=== PATIENT | female | born 1980 | race Native Hawaiian/Other Pacific Islander ===

== ENCOUNTER 2018-06-06 14:37 | Inpatient (IN) | payer BC, OTHER ==
--- NOTE | 2018-06-06 14:54 | ED PDOC ---
HPI: General Adult Time Seen by Provider: 06/06/18 14:46 Chief Complaint (Nursing): Abnormal Skin Integrity Chief Complaint (Provider): breast pain History Per: Patient History/Exam Limitations: no limitations Onset/Duration Of Symptoms: Gradual Have you had recent travel within the past 21 days to any of the following countries: [place], [place], [place] or [place]?: No Current Symptoms Are (Timing): Still Present Severity: Severe Additional Complaint(s): 38yo female c/o breast pain and swelling becoming progressively more severe over last several days. Symptoms associated with fever and weakness. Past Medical History Reviewed: Historical Data, Nursing Documentation, Vital Signs Vital Signs: Last Vital Signs Temp 97.7 F 06/06/18 16:10 Pulse 70 06/06/18 16:10 Resp 18 06/06/18 16:10 BP 141/75 06/06/18 16:10 Pulse Ox 99 06/06/18 15:06 - Medical History PMH: No Chronic Diseases, Kidney Stones Other PMH: ? allergy to unknown local anesthetic - Surgical History Surgical History: No Surg Hx - Family History Family History: States: Unknown Family Hx - Social History Current smoker - smoking cessation education provided: No - Home Medications Home Medications: Ambulatory Orders Medication Instructions Recorded Mv-Min/Iron/Folic/Calcium/Vitk 1 tab PO DAILY 06/06/18 [Women's Multivitamin Tablet] - Allergies Allergies/Adverse Reactions: Allergies Allergy/AdvReac Type Severity Reaction Status Date / Time benzyl alcohol Allergy SWELLING Verified 06/06/18 14:40 [From Oragesic] peanut Allergy RASH Verified 06/06/18 14:40 sodium chloride irrigating Allergy SWELLING Verified 06/06/18 14:40 solution [From Oragesic] yerba baljit [From Oragesic] Allergy SWELLING Verified 06/06/18 14:40 Review of Systems Constitutional: Positive for: Fever ENT: Negative for: Throat Pain Cardiovascular: Positive for: Chest Pain Respiratory: Positive for: Shortness of Breath Gastrointestinal: Negative for: Abdominal Pain Genitourinary Female: Negative for: Dysuria Musculoskeletal: Positive for: Back Pain. Negative for: Neck Pain Skin: Negative for: Rash, Lesions Neurological: Negative for: Weakness, Numbness, Headache Psych: Negative for: Psychosis, Suicidal ideation Physical Exam - Reviewed Nursing Documentation Reviewed: Yes Vital Signs Reviewed: Yes - Physical Exam Appears: Positive for: Well, Non-toxic Head Exam: Positive for: ATRAUMATIC Skin: Positive for: Normal Color, Warm Neck: Positive for: Painless ROM Cardiovascular/Chest: Positive for: Other (breast edema/ tender mass bilaterally ?nipple discharge). Negative for: Irregularly Irregular Respiratory: Negative for: Decreased Breath Sounds Extremity: Positive for: Normal ROM. Negative for: Swelling Neurologic/Psych: Positive for: Alert, manager cath lab II-XII, Oriented. Negative for: Motor/Sensory Deficits Front/Back of Body: 1 - breast edema, mass and tenderness - Laboratory Results Result Diagrams: 06/06/18 15:03 06/06/18 15:03 - ECG O2 Sat by Pulse Oximetry: 99 Pulse Ox Interpretation: Normal Medical Decision Making Medical Decision Making: to obtain surgical eval contact center analyst Dr Ferguson Check labs, EKG, CXR labs unremarkable CXR negative surgical team in ED recommends admission Admit contact center analyst surgery Dr Ferguson Disposition - Clinical Impression Clinical Impression: Breast mass - Patient ED Disposition Is Patient to be Admitted: Yes Counseled Patient/Family Regarding: Studies Performed, Diagnosis, Need For Followup - Disposition Disposition Time: 15:01 Condition: STABLE - Pt Status Changed To: Hospital Disposition Of: Inpatient - Admit Certification Admit to Inpatient:: After my assessment, the patient will require hospitalization for at least two midnights. This is because of the severity of symptoms shown, intensity of services needed, and/or the medical risk in this patient being treated as an outpatient. - POA Present On Arrival: None
[2018-06-06 15:06] LABS: BASO # 0.1 K/uL (0.0-0.2); BASO % 0.9 % (0.0-2.0); EOS % 0.7 % (0.0-4.0); HEMOGLOBIN 12.6 g/dL (12.0-16.0); LYMPH % 28.5 % (20.0-40.0); MEAN CELL VOLUME 91.2 fl (81.0-99.0); MEAN CORPUSCULAR HEMOGLOBIN 30.2 pg (27.0-31.0); MEAN CORPUSCULAR HGB CONC 33.1 g/dL (33.0-37.0); MEAN PLATELET VOLUME 9.9 fl (7.2-11.7); MONO # 0.6 K/uL (0.0-0.8); MONO % 8.9 % (0.0-10.0); NEUT # 4.2 K/uL (1.8-7.0); NRBC % 0.1 % (0.0-0.0); RBC 4.19 Mil/uL (3.80-5.20); RED CELL DISTRIBUTION WIDTH 14.8 % (11.5-14.5); WHITE BLOOD COUNT 6.9 K/uL (4.8-10.8)
[2018-06-06 15:18] LABS: ALB/GLOB RATIO 1.2 (1.0-2.1); ALBUMIN 4.5 g/dL (3.5-5.0); ALT/SGPT 29 U/L (9-52); AST/SGOT 23 U/L (14-36); BLOOD UREA NITROGEN 20 mg/dl (7-17); CALCIUM 9.5 mg/dL (8.4-10.2); GFR NON-AFRICAN AMERICAN > 60
[2018-06-06 15:25] LABS: PROTHROMBIN TIME 11.3 Seconds (9.8-13.1)
[2018-06-06 15:27] LABS: PARTIAL THROMBOPLASTIN TIME 28.7 Seconds (25.6-37.1)
--- NOTE | 2018-06-06 15:36 | CP.PCM.HP ---
History of Present Illness - History of Present Illness History of Present Illness: General Surgery H & P for Dr. Michaels-Licha Morales, PGY-2 Pt S & E at bedside at 1515 38F w/PMH sig for nephrolithasis admitted for bilateral breast pain/mass. Pt reports that >15 yrs prior she was in [place] and had some sort of unknown procedure on her breasts. Recently, she noted increasing pain, lumps in her breasts, and enlargement of her breasts of undetermined duration. Admits to associated back and neck pain, SOB, dyspnea on exertion, chest pain, dizziness and fatigue. Denies nipple discharge, skin changes, unintentional weight loss, headache, changes in urinary or bowel habits, changes in eating habits, other complaints. PMH: Nephrolithiasis PSH: Denies All: Peanuts, NaCl irrigation solution, yerba baljit, benzyl ETOH SH: Denies ETOH, tobacco or illicit drug use FH: denies hx of breast CA or other CA in 1st degree relatives PMD: Dr. Bee Present on Admission - Present on Admission Any Indicators Present on Admission: No History of DVT/PE: No History of Uncontrolled Diabetes: No Urinary Catheter: No Decubitus Ulcer Present: No Review of Systems - Review of Systems All systems: reviewed and no additional remarkable complaints except - Constitutional Constitutional: absent: Chills, Fever, Headache, Increased Appetite, Weight Loss - EENT Eyes: absent: Change in Vision Ears: Dizziness Nose/Mouth/Throat: absent: Sore Throat - Cardiovascular Cardiovascular: Chest Pain, Dyspnea on Exertion - Gastrointestinal Gastrointestinal: absent: Abdominal Pain, Change in Bowel Habits, Constipation, Diarrhea, Hematemesis, Hematochezia, Nausea, Vomiting - Genitourinary Genitourinary: absent: Difficulty Urinating, Dysuria, Flank Pain, Hematuria, Pyuria - Musculoskeletal Musculoskeletal: Back Pain, Neck Pain. absent: Numbness, Tingling - Integumentary Integumentary: absent: New Lesions, Rash - Neurological Neurological: Weakness - Psychiatric Psychiatric: absent: Change in Appetite Past Patient History - Past Social History Smoking Status: Never Smoked - RENAL Hx Kidney Stones: Yes - PSYCHIATRIC Hx Substance Use: No Meds Allergies/Adverse Reactions: Allergies Allergy/AdvReac Type Severity Reaction Status Date / Time benzyl alcohol Allergy SWELLING Verified 06/06/18 14:40 [From Oragesic] peanut Allergy RASH Verified 06/06/18 14:40 sodium chloride irrigating Allergy SWELLING Verified 06/06/18 14:40 solution [From Oragesic] yerba baljit [From Oragesic] Allergy SWELLING Verified 06/06/18 14:40 Physical Exam - Constitutional Appears: Non-toxic, No Acute Distress - Head Exam Head Exam: ATRAUMATIC, NORMAL INSPECTION, NORMOCEPHALIC - Eye Exam Eye Exam: EOMI, Normal appearance - ENT Exam ENT Exam: Mucous Membranes Moist, Normal Exam - Neck Exam Neck exam: Positive for: Full Rom, Normal Inspection - Respiratory Exam Respiratory Exam: Chest Wall Tenderness (over breast tissue), Clear to Auscultation Bilateral, NORMAL BREATHING PATTERN. absent: Rales, Rhonchi, Wheezes, Respiratory Distress Additional comments: Breasts bilaterally grossly engorged, tender to palpation, palpable mass in lateral aspect of left breast, approximately 4 o'clock position; unable to appreciate lump in right breast. No skin changes, no nipple discharge; questionable nodules/granulomas b/l breasts - Cardiovascular Exam Cardiovascular Exam: REGULAR RHYTHM, +S1, +S2 - GI/Abdominal Exam GI & Abdominal Exam: Normal Bowel Sounds, Soft. absent: Distended, Firm, Guarding, Tenderness - Extremities Exam Extremities exam: Positive for: normal inspection. Negative for: pedal edema - Back Exam Back exam: NORMAL INSPECTION - Neurological Exam Neurological exam: Alert, CN II-XII Intact, Oriented x3 - Psychiatric Exam Psychiatric exam: Normal Affect, Normal Mood - Skin Skin Exam: Dry, Intact, Normal Color, Warm Results - Vital Signs Recent Vital Signs: Last Vital Signs Temp 97.7 F 06/06/18 14:39 Pulse 70 06/06/18 14:39 Resp 18 06/06/18 14:39 BP 141/75 06/06/18 14:39 Pulse Ox 99 06/06/18 15:06 - Labs Result Diagrams: 06/06/18 15:03 06/06/18 15:03 Labs: Laboratory Results - last 24 hr 06/06/18 06/06/18 06/06/18 15:03 15:03 15:03 WBC 6.9 RBC 4.19 Hgb 12.6 Hct 38.2 MCV 91.2 MCH 30.2 MCHC 33.1 RDW 14.8 H Plt Count 240 MPV 9.9 Neut % (Auto) 61.0 Lymph % (Auto) 28.5 [place] % (Auto) 8.9 Eos % (Auto) 0.7 Baso % (Auto) 0.9 Neut # (Auto) 4.2 Lymph # (Auto) 2.0 [place] # (Auto) 0.6 Eos # (Auto) 0.0 Baso # (Auto) 0.1 PT 11.3 INR 1.0 APTT 28.7 Sodium 137 Potassium 4.1 Chloride 104 Carbon Dioxide 25 Anion Gap 12 BUN 20 H Creatinine 0.6 L Est GFR ( Amer) > 60 Est GFR (Non-Af Amer) > 60 Random Glucose 90 Calcium 9.5 Total Bilirubin 0.7 AST 23 ALT 29 Alkaline Phosphatase 80 Total Protein 8.2 Albumin 4.5 Globulin 3.7 Albumin/Globulin Ratio 1.2 Assessment & Plan - Assessment and Plan (Free Text) Assessment: 38M w/bilateral breast pain and masses Plan: Admit to Med-surg VS Q8H Activity as tolerated Pain control PRN Anti-emetic NPO Plan for OR tonight Consent in chart IVF GI/DVT ppx DW Dr. Xenia Morales, PGY-2 - Date & Time Date: 06/06/18 Time: 15:37 Decision To Admit - Pt Status Changed To: Hospital Disposition Of: Observation - . Bed Request Type: Med/Surg Admitting Physician: Waqas Michaels
[2018-06-06] MEDS ORDERED: HYDROmorphone 0.5 mg/0.5 ml ISec IVP PRN (15:41)
[2018-06-06] MEDS ORDERED: Lactated Ringer's 1,000 ML IV SCH ×2 (15:45→23:30)
[2018-06-06] MEDS ORDERED: Dexamethasone 4 mg/1 ml ONE (20:06)
[2018-06-06] MEDS ORDERED: Neostigmine 1:1000 (1 mg/ml) Inj ONE ×2 (20:07→22:52)
[2018-06-06] MEDS ORDERED: Rocuronium 10 mg/ml (5 ml) ONE (20:09)
[2018-06-06] MEDS ORDERED: Succinylcholine 200 mg/10 ml Inj IV ONE (20:09)
[2018-06-06] MEDS ORDERED: Propofol 10 mg/ml Inj (20 ML) ONE (20:09)
[2018-06-06] MEDS ORDERED: Lidocaine 4% (Laryng-O-Jet) Kit MM ONE (20:10)
[2018-06-06] MEDS ORDERED: Bupivacaine HCl 0.5% PF (30 ml) Inj ONE (20:21)
[2018-06-06] MEDS ORDERED: Lidocaine 1% w Epi 1:100,000 Inj ONE (20:21)
[2018-06-06] MEDS ORDERED: EPINEPHrine 1 mg/ml (1:1000) Inj ONE (20:22)
[2018-06-06] MEDS ORDERED: Lactated Ringer's 1,000 ML IV ONE ×3 (20:39→22:30)
[2018-06-06] MEDS ORDERED: Midazolam 2 MG/2 ML VIAL ONE (20:52)
[2018-06-06] MEDS ORDERED: Desflurane Inhalation Anesthetic Liq (240 ml) ONE (22:15)
--- NOTE | 2018-06-06 23:12 | PCM.SURG1 ---
Surgeon's Initial Post Op Note - Surgeon's Notes Surgeon: Dr. Waqas Michaels, Dr. Josselin Chavis Rice Farmer: Mira Vasquez PGY-3; Licha Morales PGY-2 Type of Anesthesia: General Endo Anesthesia Administered By: Dr. Garnica Pre-Operative Diagnosis: Bilateral breast masses Operative Findings: See op report Post-Operative Diagnosis: Bilateral breast masses Operation Performed: Radical bilateral breast debridement, flap elevation and wound vac placement x 2 Specimen/Specimens Removed: Bilateral breast masses Estimated Blood Loss: EBL {In ML}: 300 Blood Products Given: PRBC Drains Used: Wound Vac (bilaterally) Post-Op Condition: Fair Date of Surgery/Procedure: 06/06/18 Time of Surgery/Procedure: 23:11
[2018-06-06] MEDS ORDERED: Sodium Chloride 0.9% 1,000 ML IV ONE (23:16)
[2018-06-06] MEDS: HYDROmorphone 0.5 mg/0.5 ml ISec IVP PRN ×2 (23:25→23:35)
[2018-06-07 06:12] LABS: HEMOGLOBIN 10.9 g/dL (12.0-16.0); MEAN CELL VOLUME 91.6 fl (81.0-99.0); MEAN CORPUSCULAR HEMOGLOBIN 30.1 pg (27.0-31.0); MEAN CORPUSCULAR HGB CONC 32.8 g/dL (33.0-37.0); RBC 3.63 Mil/uL (3.80-5.20); RED CELL DISTRIBUTION WIDTH 14.5 % (11.5-14.5); WHITE BLOOD COUNT 12.1 K/uL (4.8-10.8)
[2018-06-07 06:31] LABS: BLOOD UREA NITROGEN 18 mg/dl (7-17); CALCIUM 7.8 mg/dL (8.4-10.2); GFR NON-AFRICAN AMERICAN > 60
[2018-06-07] MEDS ORDERED: Dextrose 50% SYRINGE Inj (50 ml) IVP ONE (06:50)
[2018-06-07] MEDS ORDERED: Insulin Lispro (humaLOG) 100 Units/ml Inj SC ONE (06:50)
--- NOTE | 2018-06-07 08:14 | CP.PCM.PN ---
Subjective - Date & Time of Evaluation Date of Evaluation: 06/07/18 Time of Evaluation: 08:10 - Subjective Subjective: General surgery progress note for Dr. Xenia Morales, PGY-2 Pt S & E at bedside at 0710 Pt reports pain well controlled overnight, hesitant to move, has pain with movement. Denies F & C, N & V, other complaints. Objective - Vital Signs/Intake and Output Vital Signs (last 24 hours): Temp Pulse Resp BP Pulse Ox 98.6 F 82 20 112/67 96 06/07/18 07:45 06/07/18 07:45 06/07/18 07:45 06/07/18 07:45 06/07/18 07:45 Intake and Output: 06/07/18 06/07/18 06:59 18:59 Intake Total 2825 Balance 2825 - Medications Medications: Current Medications Heparin Sodium (Porcine) (Heparin) 5,000 units SC Q8 NICOLE PRN Reason: Protocol Last Admin: 06/07/18 01:17 Dose: 5,000 units Acetaminophen (Ofirmev) 100 mls @ 400 mls/hr IVPB Q6H NICOLE PRN Reason: Protocol Stop: 06/07/18 22:01 Last Admin: 06/07/18 04:39 Dose: 400 mls/hr Ampicillin Sodium/Sulbactam (Sodium 3 gm/ Sodium Chloride) 100 mls @ 100 mls/ hr IVPB Q6 NICOLE PRN Reason: Protocol Last Admin: 06/07/18 03:21 Dose: 100 mls/hr Ondansetron HCl (Zofran Inj) 4 mg IVP Q6 PRN PRN Reason: Nausea/Vomiting Oxycodone HCl (Oxycodone Immediate Release Tab) 5 mg PO Q6 PRN PRN Reason: Pain, moderate (4-7) Oxycodone HCl (Oxycodone Immediate Release Tab) 10 mg PO Q6 PRN PRN Reason: Pain, severe (8-10) Pantoprazole Sodium (Protonix Inj) 40 mg IVP DAILY NICOLE - Labs Labs: 06/07/18 05:50 06/07/18 05:50 PT 11.3 Seconds (9.8-13.1) 06/06/18 15:03 INR 1.0 06/06/18 15:03 APTT 28.7 Seconds (25.6-37.1) 06/06/18 15:03 - Constitutional Appears: Non-toxic, No Acute Distress - Head Exam Head Exam: ATRAUMATIC, NORMAL INSPECTION, NORMOCEPHALIC - Eye Exam Eye Exam: EOMI, Normal appearance - ENT Exam ENT Exam: Mucous Membranes Moist, Normal Exam - Neck Exam Neck Exam: Full ROM, Normal Inspection - Respiratory Exam Respiratory Exam: NORMAL BREATHING PATTERN - Cardiovascular Exam Cardiovascular Exam: REGULAR RHYTHM, +S1, +S2 - GI/Abdominal Exam GI & Abdominal Exam: Soft, Normal Bowel Sounds. absent: Tenderness - Extremities Exam Extremities Exam: Normal Inspection - Neurological Exam Neurological Exam: Alert, Awake, CN II-XII Intact, Oriented x3 - Psychiatric Exam Psychiatric exam: Normal Affect, Normal Mood - Skin Skin Exam: Dry, Intact, Normal Color, Warm Additional comments: Bilateral breasts tender to palpation, no erythema of skin, visible wound vacs at IMM incisions visible bilaterally, wound vacs with green lights Assessment and Plan - Assessment and Plan (Free Text) Assessment: 38F POD#1 s/p radical debridment of bilateral breasts with flap elevation and wound vac placement x 2 Plan: Regular diet Pain control Anti-emetic Hyperkalemia- K 5.3 EKG done- normal sinus Given D50 & insulin FU BMP at noon Leukocytosis - 12.1 Continue Abx OOBTC Encourage IS use Monitor VS Daily labs FU wound cx GI/DVT ppx Will DW attending Carmen, PGY-2
--- NOTE | 2018-06-07 08:18 | CARD ---
APPROVED REPORT Date of service: 06/07/2018 EKG Measurement Heart [id number] <Conclusion> Normal sinus rhythm Normal ECG
--- NOTE | 2018-06-07 08:25 | CARD ---
APPROVED REPORT Date of service: 06/06/2018 EKG Measurement Heart [id number] ID [id number] <Conclusion> Normal sinus rhythm Normal ECG
--- NOTE | 2018-06-07 09:32 | RAD ---
Date of service: 06/06/2018 PROCEDURE: CHEST RADIOGRAPH, 1 VIEW HISTORY: post op, in PACU, eval for pneumo COMPARISON: 06/06/2018 FINDINGS: LUNGS: Clear. PLEURA: Mild nonspecific elevation of the right hemidiaphragm. No pleural effusion or pneumothorax. CARDIOVASCULAR: Normal. OSSEOUS STRUCTURES: No significant abnormalities. VISUALIZED UPPER ABDOMEN: Normal. OTHER FINDINGS: None. IMPRESSION: Mild nonspecific elevation of the right hemidiaphragm. Otherwise unremarkable examination.
[2018-06-07] MEDS: oxyCODONE 5 mg Immediate Release Tab PO PRN (20:31)
[2018-06-08] MEDS: oxyCODONE 5 mg Immediate Release Tab PO PRN ×3 (04:33→22:34)
[2018-06-08 07:23] LABS: HEMOGLOBIN 9.6 g/dL (12.0-16.0); MEAN CELL VOLUME 92.2 fl (81.0-99.0); MEAN CORPUSCULAR HEMOGLOBIN 29.4 pg (27.0-31.0); MEAN CORPUSCULAR HGB CONC 31.9 g/dL (33.0-37.0); RBC 3.26 Mil/uL (3.80-5.20); RED CELL DISTRIBUTION WIDTH 15.1 % (11.5-14.5); WHITE BLOOD COUNT 12.2 K/uL (4.8-10.8)
--- NOTE | 2018-06-08 08:06 | CP.PCM.PN ---
Subjective - Date & Time of Evaluation Date of Evaluation: 06/08/18 Time of Evaluation: 08:04 - Subjective Subjective: General surgery progress note for Dr. Xenia Morales, PGY-2 Pt S & E at bedside at 0640 Pt reports continued pain with movement, had swelling of bilateral hands yesterday- improved with elevation. Also reports some swelling of the inferior aspect of her chest wall above the wound vac insertion sites, L>R. Reports ambulating with nursing assistance with wound vacs attached and was OOBTC as well. Denies F & C, N & V, other complaints. Objective - Vital Signs/Intake and Output Vital Signs (last 24 hours): Temp Pulse Resp BP Pulse Ox 98.1 F 93 H 18 100/53 L 97 06/07/18 23:40 06/07/18 23:40 06/07/18 23:40 06/07/18 23:40 06/07/18 23:40 - Medications Medications: Current Medications Heparin Sodium (Porcine) (Heparin) 5,000 units SC Q8 NICOLE PRN Reason: Protocol Last Admin: 06/08/18 01:01 Dose: 5,000 units Ampicillin Sodium/Sulbactam (Sodium 3 gm/ Sodium Chloride) 100 mls @ 100 mls/ hr IVPB Q6 NICOLE PRN Reason: Protocol Last Admin: 06/08/18 04:29 Dose: 100 mls/hr Acetaminophen (Ofirmev) 100 mls @ 400 mls/hr IVPB Q6H NICOLE PRN Reason: Protocol Stop: 06/08/18 22:31 Last Admin: 06/08/18 04:28 Dose: 400 mls/hr Ondansetron HCl (Zofran Inj) 4 mg IVP Q6 PRN PRN Reason: Nausea/Vomiting Oxycodone HCl (Oxycodone Immediate Release Tab) 5 mg PO Q6 PRN PRN Reason: Pain, moderate (4-7) Last Admin: 06/08/18 04:33 Dose: 5 mg Oxycodone HCl (Oxycodone Immediate Release Tab) 10 mg PO Q6 PRN PRN Reason: Pain, severe (8-10) Pantoprazole Sodium (Protonix Inj) 40 mg IVP DAILY [facility] Last Admin: 06/07/18 08:28 Dose: 40 mg - Labs Labs: 06/08/18 05:30 06/07/18 05:50 PT 11.3 Seconds (9.8-13.1) 06/06/18 15:03 INR 1.0 06/06/18 15:03 APTT 28.7 Seconds (25.6-37.1) 06/06/18 15:03 - Constitutional Appears: Non-toxic, No Acute Distress - Head Exam Head Exam: ATRAUMATIC, NORMAL INSPECTION, NORMOCEPHALIC - Eye Exam Eye Exam: EOMI, Normal appearance - ENT Exam ENT Exam: Mucous Membranes Moist, Normal Exam - Neck Exam Neck Exam: Full ROM, Normal Inspection - Respiratory Exam Respiratory Exam: Chest Wall Tenderness (over lateral chest wall), NORMAL BREATHING PATTERN. absent: Respiratory Distress Additional comments: Bilateral infra-mammary incisions with wound vac sponges in place, some swelling above the wound vacs L>R, more tender in axilla - Cardiovascular Exam Cardiovascular Exam: REGULAR RHYTHM, +S1, +S2 - GI/Abdominal Exam GI & Abdominal Exam: Soft. absent: Tenderness - Extremities Exam Extremities Exam: Normal Inspection - Neurological Exam Neurological Exam: Alert, Awake, CN II-XII Intact, Oriented x3 - Psychiatric Exam Psychiatric exam: Normal Affect, Normal Mood - Skin Skin Exam: Dry, Intact, Normal Color, Warm Assessment and Plan - Assessment and Plan (Free Text) Assessment: 38F POD#2 s/p radical debridment of bilateral breasts with flap elevation and wound vac placement x 2 Plan: FU AM labs Pain control PRN OOBTC Ambulate with assistance attached to wound vacs at least 3 times daily Never disconnect the wound vacs cont regular diet Cont IV Abx Encourage IS use Monitor VS FU Wound cx Daily labs GI/DVT ppx DW attending Carmen, PGY-2
[2018-06-08 08:19] LABS: BLOOD UREA NITROGEN 14 mg/dl (7-17); CALCIUM 8.1 mg/dL (8.4-10.2); GFR NON-AFRICAN AMERICAN > 60
[2018-06-09 07:00] LABS: HEMOGLOBIN 10.4 g/dL (12.0-16.0); MEAN CELL VOLUME 91.5 fl (81.0-99.0); MEAN CORPUSCULAR HEMOGLOBIN 30.5 pg (27.0-31.0); MEAN CORPUSCULAR HGB CONC 33.3 g/dL (33.0-37.0); RBC 3.42 Mil/uL (3.80-5.20); RED CELL DISTRIBUTION WIDTH 14.6 % (11.5-14.5); WHITE BLOOD COUNT 9.3 K/uL (4.8-10.8)
--- NOTE | 2018-06-09 07:55 | CP.PCM.PN ---
Subjective - Date & Time of Evaluation Date of Evaluation: 06/09/18 Time of Evaluation: 07:53 - Subjective Subjective: Surgery - Dr. Michaels, Dr. Chavis Pt S&EEmerald BANDA. Pt denies any complaints. Wound vac in place to suction, 300cc total drainage/24hrs. Pain is well controlled. She has been OOBTC and ambulating with nursing assistance. No Fevers/chills. Objective - Vital Signs/Intake and Output Vital Signs (last 24 hours): Temp Pulse Resp BP Pulse Ox 98.2 F 75 19 120/85 99 06/09/18 00:33 06/09/18 00:33 06/09/18 00:33 06/09/18 00:33 06/09/18 00:33 Intake and Output: 06/09/18 06/09/18 06:59 18:59 Output Total 300 Balance -300 - Medications Medications: Current Medications Heparin Sodium (Porcine) (Heparin) 5,000 units SC Q8 NICOLE PRN Reason: Protocol Last Admin: 06/09/18 00:36 Dose: 5,000 units Ampicillin Sodium/Sulbactam (Sodium 3 gm/ Sodium Chloride) 100 mls @ 100 mls/ hr IVPB Q6 NICOLE PRN Reason: Protocol Last Admin: 06/09/18 04:05 Dose: 100 mls/hr Ondansetron HCl (Zofran Inj) 4 mg IVP Q6 PRN PRN Reason: Nausea/Vomiting Oxycodone HCl (Oxycodone Immediate Release Tab) 5 mg PO Q6 PRN PRN Reason: Pain, moderate (4-7) Last Admin: 06/08/18 22:34 Dose: 5 mg Oxycodone HCl (Oxycodone Immediate Release Tab) 10 mg PO Q6 PRN PRN Reason: Pain, severe (8-10) Pantoprazole Sodium (Protonix Inj) 40 mg IVP DAILY [facility] Last Admin: 06/08/18 10:23 Dose: 40 mg - Labs Labs: 06/09/18 05:30 06/08/18 05:30 PT 11.3 Seconds (9.8-13.1) 06/06/18 15:03 INR 1.0 06/06/18 15:03 APTT 28.7 Seconds (25.6-37.1) 08/23/18 15:03 - Constitutional Appears: No Acute Distress - Head Exam Head Exam: ATRAUMATIC, NORMAL INSPECTION, NORMOCEPHALIC - Eye Exam Eye Exam: Normal appearance - Respiratory Exam Respiratory Exam: NORMAL BREATHING PATTERN. absent: Respiratory Distress - Cardiovascular Exam Cardiovascular Exam: REGULAR RHYTHM - GI/Abdominal Exam GI & Abdominal Exam: Soft. absent: Distended, Tenderness Additional comments: wound vacs in b/l inframammary folds with 150cc each/24hrs, serosanguinous - Neurological Exam Neurological Exam: Alert, Oriented x3 - Psychiatric Exam Psychiatric exam: Normal Affect, Normal Mood - Skin Skin Exam: Dry, Intact Assessment and Plan - Assessment and Plan (Free Text) Assessment: 38F POD#3 s/p radical debridment of bilateral breasts with flap elevation and wound vac placement x 2 Plan: -OR tomorrow for reconstruction and possible closure -Continue pain control prn -IV Abx -OOB and ambulation with assistance at least 3 times daily, with wound vacs connected -GI/DVT ppx -NPO after midnight jack RUBIN attending Roman PGY4
[2018-06-09 07:56] LABS: BLOOD UREA NITROGEN 11 mg/dl (7-17); CALCIUM 8.8 mg/dL (8.4-10.2); GFR NON-AFRICAN AMERICAN > 60
[2018-06-09] MEDS: oxyCODONE 10 mg Immediate Release Tab PO PRN (09:03)
[2018-06-09] MEDS: oxyCODONE 5 mg Immediate Release Tab PO PRN (18:30)
[2018-06-09] MEDS: Lactated Ringer's 1,000 ML IV SCH (20:30)
[2018-06-10] MEDS: oxyCODONE 5 mg Immediate Release Tab PO PRN ×3 (01:42→22:30)
[2018-06-10] MEDS: Lactated Ringer's 1,000 ML IV SCH (06:00)
[2018-06-10 06:17] LABS: PROTHROMBIN TIME 11.2 Seconds (9.8-13.1)
[2018-06-10 06:20] LABS: PARTIAL THROMBOPLASTIN TIME 48.3 Seconds (25.6-37.1)
[2018-06-10 06:23] LABS: MEAN CORPUSCULAR HEMOGLOBIN 30.7 pg (27.0-31.0); MEAN CORPUSCULAR HGB CONC 33.4 g/dL (33.0-37.0); RBC 3.57 Mil/uL (3.80-5.20); WHITE BLOOD COUNT 6.7 K/uL (4.8-10.8)
[2018-06-10 06:41] LABS: BLOOD UREA NITROGEN 13 mg/dl (7-17); GFR NON-AFRICAN AMERICAN > 60
[2018-06-10] MEDS ORDERED: Liquid Adhesive TOP ONE (16:21)
[2018-06-10] MEDS ORDERED: Rocuronium 10 mg/ml (5 ml) ONE (16:55)
[2018-06-10] MEDS ORDERED: Propofol 10 mg/ml Inj (20 ML) ONE (16:55)
[2018-06-10] MEDS ORDERED: Succinylcholine 200 mg/10 ml Inj IV ONE (16:55)
[2018-06-10] MEDS ORDERED: Lactated Ringer's 1,000 ML IV ONE ×2 (17:07→18:45)
[2018-06-10] MEDS ORDERED: Bacitracin Ointment 30 GM TUBE ONE ×2 (18:41→18:44)
[2018-06-10] MEDS ORDERED: Bacitracin OINT 15GM TOP ONE (19:00)
--- NOTE | 2018-06-10 19:29 | PCM.SURG1 ---
Surgeon's Initial Post Op Note - Surgeon's Notes Surgeon: Dr Partha Fair Director Inbound Sales: Mira Vasquez PGY-3; Licha Morales PGY-2 Type of Anesthesia: General Endo Anesthesia Administered By: Dr. Billy Pre-Operative Diagnosis: Bilateral breast wounds s/p radical debridment of bilateral lesions & abscess Operative Findings: See op report Post-Operative Diagnosis: Bilateral breast wounds s/p radical debridment of bilateral lesions & abscess Operation Performed: Bilateral breast debridement of necrotic tissue with flap closure Specimen/Specimens Removed: Necrotic breast tissue Estimated Blood Loss: EBL {In ML}: 100 Blood Products Given: N/A Drains Used: Pietro Hughes (x2) Post-Op Condition: Good Date of Surgery/Procedure: 06/10/18 Time of Surgery/Procedure: 19:28
[2018-06-10] MEDS ORDERED: Lactated Ringer's 1,000 ML IV SCH (19:45)
[2018-06-11] MEDS: oxyCODONE 10 mg Immediate Release Tab PO PRN ×3 (05:01→18:27)
[2018-06-11 06:45] LABS: BLOOD UREA NITROGEN 11 mg/dl (7-17); CALCIUM 8.2 mg/dL (8.4-10.2); GFR NON-AFRICAN AMERICAN > 60
[2018-06-11 06:46] LABS: HEMOGLOBIN 10.6 g/dL (12.0-16.0); MEAN CORPUSCULAR HEMOGLOBIN 30.6 pg (27.0-31.0); MEAN CORPUSCULAR HGB CONC 33.7 g/dL (33.0-37.0); RBC 3.48 Mil/uL (3.80-5.20); RED CELL DISTRIBUTION WIDTH 14.9 % (11.5-14.5); WHITE BLOOD COUNT 10.7 K/uL (4.8-10.8)
--- NOTE | 2018-06-11 08:22 | RAD ---
Date of service: 06/11/2018 PROCEDURE: CHEST RADIOGRAPH, 1 VIEW HISTORY: s/p breast reconstruction, r/o ptx COMPARISON: None available. FINDINGS: LUNGS: The lungs are well inflated and clear. PLEURA: No pneumothorax or pleural fluid seen. CARDIOVASCULAR: Normal. OSSEOUS STRUCTURES: No significant abnormalities. VISUALIZED UPPER ABDOMEN: Normal. OTHER FINDINGS: Drainage catheter overlies bilateral upper quadrants. IMPRESSION: No acute findings.
--- NOTE | 2018-06-11 10:40 | RAD ---
Date of service: 06/11/2018 HISTORY: tachycardia COMPARISON: Chest radiograph performed approximately 9 hours prior TECHNIQUE: Chest PA and lateral FINDINGS: LUNGS: No active pulmonary disease. PLEURA: No significant pleural effusion identified. No pneumothorax apparent. CARDIOVASCULAR: Normal. OSSEOUS STRUCTURES: No significant abnormalities. VISUALIZED UPPER ABDOMEN: Normal. OTHER FINDINGS: Unchanged bilateral drainage catheters. IMPRESSION: No active disease.
[2018-06-11 16:03] VITALS: BP 104/67; PULSE 110; RESP 20; TEMP 98.9; O2SAT 98
--- NOTE | 2018-06-11 19:03 | CP.PCM.DIS ---
Provider - Provider Date of Admission: 06/06/18 15:09 Attending physician: Waqas Michaels MD Primary care physician: Dr. Michaels- general surgery Consults: None Time Spent in preparation of Discharge (in minutes): 35 Diagnosis - Discharge Diagnosis (1) Breast abscess of female Status: Acute (2) Skin flap necrosis Status: Acute (3) Disorder of flap Status: Acute Hospital Course - Lab Results Lab Results: Micro Results 06/06/18 09:17 Breast - Left Gram Stain - Final 06/06/18 09:17 Breast - Left Wound Culture - Final Coagulase Neg Staphylococcus Most Recent Lab Values WBC 10.7 K/uL (4.8-10.8) D 06/11/18 05:40 RBC 3.48 Mil/uL (3.80-5.20) L 06/11/18 05:40 Hgb 10.6 g/dL (12.0-16.0) L 06/11/18 05:40 Hct 31.6 % (34.0-47.0) L 06/11/18 05:40 MCV 91.0 fl (81.0-99.0) 06/11/18 05:40 MCH 30.6 pg (27.0-31.0) 06/11/18 05:40 MCHC 33.7 g/dL (33.0-37.0) 06/11/18 05:40 RDW 14.9 % (11.5-14.5) H 06/11/18 05:40 Plt Count 243 K/uL (130-400) 06/11/18 05:40 MPV 9.9 fl (7.2-11.7) 06/06/18 15:03 Neut % (Auto) 61.0 % (50.0-75.0) 06/06/18 15:03 Lymph % (Auto) 28.5 % (20.0-40.0) 06/06/18 15:03 [place] % (Auto) 8.9 % (0.0-10.0) 06/06/18 15:03 Eos % (Auto) 0.7 % (0.0-4.0) 06/06/18 15:03 Baso % (Auto) 0.9 % (0.0-2.0) 06/06/18 15:03 Neut # (Auto) 4.2 K/uL (1.8-7.0) 06/06/18 15:03 Lymph # (Auto) 2.0 K/uL (1.0-4.3) 06/06/18 15:03 [place] # (Auto) 0.6 K/uL (0.0-0.8) 06/06/18 15:03 Eos # (Auto) 0.0 K/uL (0.0-0.7) 06/06/18 15:03 Baso # (Auto) 0.1 K/uL (0.0-0.2) 06/06/18 15:03 PT 11.2 Seconds (9.8-13.1) 06/10/18 05:20 INR 1.0 06/10/18 05:20 APTT 48.3 Seconds (25.6-37.1) H 06/10/18 05:20 Sodium 134 mmol/l (132-148) 06/11/18 05:40 Potassium 4.1 MMOL/L (3.6-5.0) 06/11/18 05:40 Chloride 102 mmol/L (98-107) 06/11/18 05:40 Carbon Dioxide 24 mmol/L (22-30) 06/11/18 05:40 Anion Gap 12 (10-20) 06/11/18 05:40 BUN 11 mg/dl (7-17) 06/11/18 05:40 Creatinine 0.7 mg/dl (0.7-1.2) 06/11/18 05:40 Est GFR ( Amer) > 60 06/11/18 05:40 Est GFR (Non-Af Amer) > 60 06/11/18 05:40 Random Glucose 131 mg/dL (65-105) H 06/11/18 05:40 Calcium 8.2 mg/dL (8.4-10.2) L 06/11/18 05:40 Total Bilirubin 0.7 mg/dl (0.2-1.3) 06/06/18 15:03 AST 23 U/L (14-36) 06/06/18 15:03 ALT 29 U/L (9-52) 06/06/18 15:03 Alkaline Phosphatase 80 U/L (38-126) 06/06/18 15:03 Total Protein 8.2 G/DL (6.3-8.2) 06/06/18 15:03 Albumin 4.5 g/dL (3.5-5.0) 06/06/18 15:03 Globulin 3.7 gm/dL (2.2-3.9) 06/06/18 15:03 Albumin/Globulin Ratio 1.2 (1.0-2.1) 06/06/18 15:03 Blood Type O POSITIVE 06/06/18 21:18 Blood Type Confirm O POSITIVE 06/06/18 22:10 Antibody Screen Negative 06/06/18 21:18 Crossmatch See Detail 06/06/18 21:18 BBK History Checked No verified bt 06/06/18 21:18 - Hospital Course Hospital Course: 38F w/PMH sig for nephrolithasis admitted for bilateral breast pain/mass. Pt reports that >15 yrs prior she was in [place] and had some sort of unknown procedure on her breasts. Recently, she noted increasing pain, lumps in her breasts, and enlargement of her breasts of undetermined duration. Admits to associated back and neck pain, SOB, dyspnea on exertion, chest pain, dizziness and fatigue. Denies nipple discharge, skin changes, unintentional weight loss, headache, changes in urinary or bowel habits, changes in eating habits, other complaints. Pt taken to OR on day of admission for bilateral breast mass debridement, flap elevation and wound vac placment x 2. Pt tolerated procedure well, was monitored over the weekend with pain control and IV Abx given. Pt taken back to OR on 06/10 for bilateral breast debridement of necrotic tissue with flap closure and placement of drains bilaterally. Pt tolerated the procedure well, pain well controlled. Pt eating, ambulating, voiding post operatively. Monitored overnight after second surgery, pt stable and ready for discharge home on PO Abx as per Dr. Michaels. To follow up in the office as discussed with patient. Diagnoses Breast abscess breast mass Flap necrosis - Date & Time of H&P Date of H&P: 06/06/18 Time of H&P: 15:30 Discharge Exam - Head Exam Head Exam: ATRAUMATIC, NORMAL INSPECTION, NORMOCEPHALIC - Eye Exam Eye Exam: EOMI, Normal appearance - Respiratory Exam Respiratory Exam: Chest Wall Tenderness (over surgical sites bilaterally. surgical bra in place with abdominal pads over surgical sites, drains in place x 2 with serosanguinous output.), NORMAL BREATHING PATTERN, UNREMARKABLE Additional comments: Bilateral incisions in upper abdomen/infra-mammary folds with dressings in place - clean/dry intact - Cardiovascular Exam Cardiovascular Exam: Tachycardia, +S1, +S2 - GI/Abdominal Exam GI & Abdominal Exam: Unremarkable. absent: Distended, Tenderness - Extremities Exam Extremities exam: full ROM, normal inspection - Back Exam Back exam: NORMAL INSPECTION - Neurological Exam Neurological exam: Alert, CN II-XII Intact, Oriented x3 - Psychiatric Exam Psychiatric exam: Normal Affect, Normal Mood - Skin Skin Exam: Dry, Normal Color, Warm Discharge Plan - Discharge Medications Prescriptions: Amoxicillin/Clavulanate [Augmentin 875 MG-125 MG] 1 tab PO BID #20 tab - Follow Up Plan Condition: STABLE Disposition: HOME/ ROUTINE Instructions: Breast Biopsy, Breast Abscess Drainage (DC) Additional Instructions: Do not shower until seen by Dr. Chavis Do not get your dressings wet Please follow up with Dr. Chavis in the office, call for an appointment You are being discharged on antiobiotics, please take as directed Pain medications and antibiotics have been called into a pharmacy for you Referrals: Josselin Chavis MD [Medical Doctor] - Waqas Michaesl MD [Staff Provider] -
--- NOTE | 2018-06-12 16:44 | OP ---
Copied To: Josselin Chavis MD Attending MD: Josselin Chavis MD PROCEDURE DATE: 06/06/2018 SURGEON: Josselin Chavis MD BUTTON ATTACHING MACHINE OPERATOR SURGEON: Pedro Dodd DO, DO, Tsoulias, George MD ANESTHESIOLOGIST: Kristofer Billy MD ANESTHESIA: General endotracheal tube anesthesia. PREOPERATIVE DIAGNOSES: As follows: 1. Bilateral open breast wounds, status post radical resection of necrotic soft tissue. 2. Bilateral breast mass. 3. Bilateral breast infections and abscess. POSTOPERATIVE DIAGNOSES: As follows: 1. Bilateral open breast wounds, status post radical resection of necrotic soft tissue. 2. Bilateral breast mass. 3. Bilateral breast infections and abscess. PROCEDURES PERFORMED: As follows: 1. Exploration of left chest open wound. 2. Exploration of right chest open wound. 3. Left breast superiorly-based mammary fasciocutaneous advancement flap closure. 4. Right breast superiorly-based mammary fasciocutaneous flap. 5. Left breast 20 x 23 or 575 sq cm adjacent tissue transfer of the left breast wound closure. 6. 20 x 20 or 400 sq cm of right breast local tissue rearrangement/adjacent tissue transfer. INDICATIONS FOR PROCEDURE: As follows: This is a 38-year-old female who was operated on three days prior at which time she had radical debridement, resection of necrotic soft tissue mass and drainage of abscess from bilateral breasts. Wound cultures have ran out Staphylococcus bacteria. The patient has been treated with IV antibiotics. Her white count was slightly elevated and they came back to normal in the last few days. The wound VAC had put out 600 mL of serosanguineous fluid from both breast. Today, the plan is to take the patient back for further washout, exploration, and debridement of further necrotic tissue and then adjacent tissue transfer or fasciocutaneous flap closure since there was an exceedingly large amount of space from the hydrodissection of the fluid that was in the breast. There was a huge space, which would be leaving the patient prone to seromas, hematomas, and infections. So, we told the patient we will tissue transfer/fasciocutaneous advancement flap closure of her drains. Risks and benefits to the operation including, but not limited to infection, hematomas, seroma, damage to nerves, poor scaring, need for future operations, keloid scarring, and deformity were discussed with the patient, who agreed to proceed. DESCRIPTION OF PROCEDURE: As follows: The patient was taken to the operating room. Perioperative antibiotics were given. STDs were placed on bilateral lower extremities. We removed the wound VACs from bilateral breasts. The area was prepped and draped in usual clean and sterile manner. We first explored both open chest wounds by making the incision larger with a scalpel and then with a lighted retractor. We explored both breasts. There were some more necrotic soft tissue in the left breast about 5 x 5 or 25 sq cm, which was debrided by scalpel and electrocautery. On the right breast, there was about 20 sq cm of necrotic soft tissue, that was debrided. There were no obvious signs of any gross infection or any pus pockets that we saw, which we were pleased with, which led us to move forward with closure of her drains. We pulse lavaged 3 L of antibiotic irrigation in each breast open wound. After doing this and ensuring hemostasis, we measured the space. In the left breast, it was 25 x 23 and on the right side, it was 20 x 20 sq cm of space from undermining that needed to be closed with progressive attention to the advancement flap closure. So, the previous flaps that were elevated and delayed, which were superior mammary based fasciocutaneous flaps based under fourth and fifth intercostal arteries, which were previously elevated and delayed were noted to be advanced, so with electrocautery we released and cut the deep muscle fascia superiorly and laterally based on these arteries and we advanced the closure of the flaps. We did adjacent tissue transfer of 20 x 20 or 400 sq cm on the right breast and 25 x 23 or 575 sq cm of the left breast by using 0 Vicryl closing sutures after we made a back cut and moved some soft tissue to reorient the soft tissue to close some of the space. Prior to doing this, we left a 10-mm flat HAWK in each breast in a dependent position, taken out through a separate stab incision and the drain was secured in place with 2-0 silk suture. After doing advancement flap, progressive tension suturing and adjacent tissue transfer by moving soft tissue around and closing of the space, we were then left with open wounds in both breasts. There was a 10 cm wound on the right breast and 9 cm wound on the left breast. We used 2-0 Vicryl to line up and approximate the Lionel fascia in interrupted fashion, 3-0 Monocryl to line up and approximate the deep dermis in interrupted fashion and running 3-0 Monocryl subcuticular layer. Bacitracin, Xeroform, Telfa, and Tegaderm were placed. We then placed a bulky dressing and a surgical bra and the drains were secured in place. The patient awoke from anesthesia and transferred to recovery room in stable condition. FINDINGS: As above. SPECIMEN: Bilateral breast soft tissue from both sides. ESTIMATED BLOOD LOSS: About 150 mL. DRAINS: 10-mm HAWK x2 bilateral breasts. COMPLICATIONS: None. CONDITION: Stable. Josselin Chavis MD
--- NOTE | 2018-06-13 01:53 | CON ---
Copied To: Waqas Michaels MD Attending MD: Waqas Michaels MD DATE: 06/06/2018 EMERGENCY ROOM CONSULTATION SURGEON: Waqas Michaels MD HISTORY OF PRESENT ILLNESS: This is a 38-year-old female who presented to the emergency room with bilateral breast masses and pain and a recent increase in size. There was a fluctuance within both breasts that was concerned for either a tumor, a mass, or a collection which could be infectious. Thus, I was consulted by the emergency room staff as the surgeon on-call. On history, the patient states she had some vague recollection of a procedure done to her about 10 to 15 years ago. The patient denied having any implants placed within her breast. She states that both her breasts have gotten larger and more painful. The left one was extremely distorted. There were two small masses on the left side as well. She was very concerned that she may have cancer. She was having more pain and she was not feeling well and feeling feverish with chills, and she had concerned for infection. PHYSICAL EXAMINATION: BREASTS: Bilateral breasts were grossly enlarged. There were two nodules on the left breast which were palpable. The inframammary fold was distorted and tethered on the left side. There was underlying fluctuant mass in both breasts, greater on the left. ASSESSMENT AND PLAN: I explained to the patient that she has a possibility of having a neoplasm, a benign mass, or an infection in both breasts. Since these were getting larger, more tender, more palpable and there was concern for infection, she would benefit from going through the operating room for exploration to which she agreed. I will dictate a separate operative report. Waqas Michaels MD
--- NOTE | 2018-06-13 02:18 | OP ---
Copied To: Waqas Michaels MD Attending MD: Waqas Michaels MD PROCEDURE DATE: 06/06/2018 PRIMARY SURGEON: Waqas Michaels MD ESTIMATOR JEWELRY SURGEON: . ANESTHESIOLOGIST: Sukhjinder Garnica MD ANESTHESIA: General endotracheal tube anesthesia. PREOPERATIVE DIAGNOSES: 1. Bilateral breast mass. 2. Possible infection of bilateral breasts. 3. Possible necrosis of bilateral breasts. POSTOPERATIVE DIAGNOSES: 1. Bilateral breast mass. 2. Possible infection of bilateral breasts. 3. Possible necrosis of bilateral breasts. PROCEDURE PERFORMED: 1. Radical resection of 15 x 12 or 180 cm2 of right breast necrotic soft tissue mass. 2. Radical resection of 20 x 15 or 300 cm2 of left breast necrotic soft tissue mass. 3. Elevation and delay of right superior mammary based fasciocutaneous flap. 4. Elevation and delay of left superiorly based mammary fasciocutaneous flap. 5. Wound Vacuum-assisted closure placement to bilateral breasts. INDICATIONS FOR PROCEDURE: As follows. Please refer to my separately dictated ER consultation for history and physical. DESCRIPTION OF PROCEDURE: The patient was taken to the operating room. In the preoperative holding area, the inframammary fold was marked as well as the breast masses on both breasts and the markings were made symmetric. The patient was taken to the operating room, perioperative antibiotics were given. SCDs were placed in the bilateral lower extremities. The area was prepped and draped in the usual skin in sterile manner. We started the operation in the inframammary fold on the right breast making an incision with the scalpel and then with the electrocautery we dissected down and then we entered into a capsule, which contained yellowish bulky fluid of unknown origin. This was sent for wound cultures. We then fully dissected and elevated and delayed a right superiorly mammary based fasciocutaneous flap based on the fourth and fifth intercostal artery senior compliance officer branches. By doing through minimally invasive insertion, we elevated a superiorly based fasciocutaneous flap based on the above-mentioned artery all the way up to the clavicle superiorly, to the sternum medially, and to the mid axillary line laterally with the aid of a lighted retractor. We encountered yellowish fluid that appeared to possibly be infected and there was necrotic soft tissue as well as scar tissue, which was then excised with a combination of sharp dissection and electrocautery. On the right side, 15 x 12 or 180 cm2 of material and mass were removed and cultures were sent for infection to the lab. We then ensured hemostasis with electrocautery, pulsatile lavaged 2 L of antibiotic irrigations. Recheck for hemostasis. We are happy with the initial elevation and delay of the fasciocutaneous flap on the right side and then I put in a wound VAC and set it to 125 mmHg because of high concern for infection and there was need for further debridement and they did not want to close the potentially infected wound. We then did the same exact thing on the left side. We made the incision matching the right side and then we did the same exact thing. We elevated and delayed a left superiorly based mammary fasciocutaneous flap based on the perforating branches of the fourth and the fifth intercostal arteries. The left breast was larger and more exaggerated and there was more debridement that was performed, the same exact procedure that we did on the right, that we did on the left. There was 20 x 15 or 300 cm2 of necrotic soft tissue mass and scar tissue that was sent and wound cultures were also sent. After doing the debridement and the removal of the necrotic soft tissue mass on the left side and elevating a flap, we irrigated with 2 L of antibiotic irrigation, ensured hemostasis with electrocautery, and there was about 300 mL estimated blood loss. One pack unit of red blood cells was given to the patient intraoperatively. A wound VAC was placed in the left breast, set to 225 mmHg. Once the VACs were connected, the patient awoke from anesthesia, and transferred to the recovery room in stable condition. FINDINGS: As above. SPECIMENS: Bilateral breasts necrotic soft tissue mass as well as wound cultures from fluid from the breast. ESTIMATED BLOOD LOSS: 300 mL. DRAINS: Wound VACs to bilateral breasts. COMPLICATIONS: None. The patient got 1 unit of packed red blood cells. CONDITION: Stable. Waqas Michaels MD
== END 2018-06-11 19:45 | disposition home or self-care (01) | DRG 581 ==
LOC: H.ER 14:37 → H.ERHOLD 15:09 → H.MEDSURG1 16:13
PROVIDERS: ADMIT Specialist; ATTEND Specialist
PROC: 0H9V0ZX Drainage of Bilateral Breast, Open Approach, Diagnostic (ICD-10-PCS; 2018-06-06)
PROC: 0H85XZZ Division of Chest Skin, External Approach (ICD-10-PCS; 2018-06-06)
PROC: 0H85XZZ Division of Chest Skin, External Approach (ICD-10-PCS; 2018-06-06)
PROC: 0HBV0ZZ Excision of Bilateral Breast, Open Approach (ICD-10-PCS; principal; 2018-06-06 19:00)
PROC: 0JX60ZZ Transfer Chest Subcutaneous Tissue and Fascia, Open Approach (ICD-10-PCS; 2018-06-10)
PROC: 0HBV0ZZ Excision of Bilateral Breast, Open Approach (ICD-10-PCS; 2018-06-10)
PROC: 0JX60ZZ Transfer Chest Subcutaneous Tissue and Fascia, Open Approach (ICD-10-PCS; 2018-06-10)
DX: N61.1 Abscess of the breast and nipple (principal); E87.5 Hyperkalemia; Z87.442 Personal history of urinary calculi; N63.0 Unspecified lump in unspecified breast; N64.1 Fat necrosis of breast